=== PATIENT | male | born 1995 | race Caucasian/White ===

== ENCOUNTER 2021-03-29 13:25 | Emergency (ER) | payer BC ==
[2021-03-29] MEDS ORDERED: ONDANSETRON 4 MG/2 ML VIAL IVP STA (14:01)
[2021-03-29] MEDS ORDERED: SODIUM CHLORIDE 0.9% 2,000 ML IV ONE (14:01)
--- NOTE | 2021-03-29 14:18 | ED ---
General Adult HPI - General Chief complaint: Seizure Stated complaint: Seizures,vomiting Time Seen by Provider: 03/29/21 14:00 Source: patient, RN notes reviewed Mode of arrival: wheelchair Limitations: no limitations - History of Present Illness Initial comments: Patient is a 25-year-old male presenting to ED for seizure. Patient girlfriend states that he had 2 separate episodes first occuring around 6am this morning where whole-body shaking with foaming at the mouth. Patient was unable to answer several minutes after the event, patient has no recollection of these events. Patient reports being able to get up and get the couch or another simil ar event occurred. Patient states he has been feeling under the weather with nausea vomiting starting today. Patient reports only being able to keep down water as of this morning. Patient has positive family history of diabetes but reports no seizure history before these events. Patient denies any fever cough congestion, neck pain or stiffness. - Related Data Previous Rx's Medication Instructions Recorded Ondansetron Odt [Zofran Odt] 4 mg PO Q8HR PRN #10 tab 03/29/21 Allergies Allergy/AdvReac Type Severity Reaction Status Date / Time No Known Allergies Allergy Verified 03/29/21 14:20 Review of Systems ROS Statement: Those systems with pertinent positive or pertinent negative responses have been documented in the HPI. ROS Other: All systems not noted in ROS Statement are negative. Past Medical History Past Medical History: No Reported History History of Any Multi-Drug Resistant Organisms: MRSA Date of last positivie culture/infection: 2020 MDRO Source:: arm Past Surgical History: No Surgical Hx Reported Past Psychological History: No Psychological Hx Reported Smoking Status: Never smoker Past Alcohol Use History: Rare Past Drug Use History: Marijuana General Exam Limitations: no limitations Course Vital Signs 03/29/21 13:51 Temperature 98.5 F Pulse Rate 77 Respiratory 16 Rate Blood Pressure 147/78 O2 Sat by Pulse 99 Oximetry Medical Decision Making - Medical Decision Making Patient was updated on results and reevaluated for feeling very comfortable. Patient significant other did describe seizure-like activity. Patient did have some sort of viral illness today. I did advise the patient that is unclear if he had a seizure though when a mildly cannot drive for 6 months. Patient will follow-up with urology return parameters were discussed. - Lab Data Result diagrams: 03/29/21 14:32 03/29/21 14:32 Lab Results 03/29/21 03/29/21 Range/Units 14:32 14:32 WBC 15.9 H (3.8-10.6) k/uL RBC 5.44 (4.30-5.90) m/uL Hgb 16.9 (13.0-17.5) gm/dL Hct 47.5 (39.0-53.0) % MCV 87.3 (80.0-100.0) fL MCH 31.1 (25.0-35.0) pg MCHC 35.6 (31.0-37.0) g/dL RDW 13.1 (11.5-15.5) % Plt Count 256 (150-450) k/uL MPV 7.6 Neutrophils % 87 % Lymphocytes % 6 % Monocytes % 5 % Eosinophils % 1 % Basophils % 0 % Neutrophils # 13.9 H (1.3-7.7) k/uL Lymphocytes # 0.9 L (1.0-4.8) k/uL Monocytes # 0.9 (0-1.0) k/uL Eosinophils # 0.1 (0-0.7) k/uL Basophils # 0.0 (0-0.2) k/uL Sodium 139 (137-145) mmol/L Potassium 4.6 (3.5-5.1) mmol/L Chloride 105 (98-107) mmol/L Carbon Dioxide 27 (22-30) mmol/L Anion Gap 7 mmol/L BUN 17 (9-20) mg/dL Creatinine 0.94 (0.66-1.25) mg/dL Est GFR (CKD-EPI)AfAm >90 (>60 ml/min/1.73 sqM) Est GFR (CKD-EPI)NonAf >90 (>60 ml/min/1.73 sqM) Glucose 110 H (74-99) mg/dL Calcium 9.9 (8.4-10.2) mg/dL Magnesium 2.1 (1.6-2.3) mg/dL Total Bilirubin 0.8 (0.2-1.3) mg/dL AST 26 (17-59) U/L ALT 43 (4-49) U/L Alkaline Phosphatase 82 (38-126) U/L Total Protein 7.6 (6.3-8.2) g/dL Albumin 4.5 (3.5-5.0) g/dL Disposition Clinical Impression: Seizure-like activity, Nausea & vomiting Disposition: HOME SELF-CARE Condition: Stable Instructions (If sedation given, give patient instructions): New-Onset Seizure in Adults (ED) Additional Instructions: Please return to the Emergency Department if symptoms worsen or any other concerns. Prescriptions: Ondansetron Odt [Zofran Odt] 4 mg PO Q8HR PRN #10 tab PRN Reason: Nausea Is patient prescribed a controlled substance at d/c from ED?: No Referrals: None,Stated [Primary Care Provider] - 1-2 days Kane Fam MD [STAFF PHYSICIAN] - 1-2 days Time of Disposition: 15:02
--- NOTE | 2021-03-29 14:41 | CT ---
EXAMINATION TYPE: CT brain wo con DATE OF EXAM: 03/29/2021 COMPARISON: None HISTORY: Seizures CT DLP: 1098.4 mGycm Automated exposure control for dose reduction was used. Ventricles have normal size. There is no mass effect nor midline shift. There is no sign of intracran ial hemorrhage. The calvarium is intact. There is normal aeration of the mastoid sinuses. There is mucus retention cyst left maxillary sinus. IMPRESSION: Negative unenhanced head CT scan.
[2021-03-29 14:51] LABS: Basophils % (A) 0 %; Eosinophils # (A) 0.1 k/uL (0-0.7); Eosinophils % (A) 1 %; HCT 47.5 % (39.0-53.0); HGB 16.9 gm/dL (13.0-17.5); Lymphocytes # (A) 0.9 k/uL (1.0-4.8); Lymphocytes % (A) 6 %; MCH 31.1 pg (25.0-35.0); MCHC 35.6 g/dL (31.0-37.0); MCV 87.3 fL (80.0-100.0); Mean Platelet Volume 7.6; Monocytes # (A) 0.9 k/uL (0-1.0); Monocytes % (A) 5 %; Neutrophils # (A) 13.9 k/uL (1.3-7.7); Neutrophils % (A) 87 %; Platelet Count 256 k/uL (150-450); RBC 5.44 m/uL (4.30-5.90); RDW 13.1 % (11.5-15.5); WBC 15.9 k/uL (3.8-10.6)
[2021-03-29 14:54] LABS: ALT 43 U/L (4-49); AST 26 U/L (17-59); African American GFR (CKD) >90 (>60 ml/min/1.73 sqM); Albumin 4.5 g/dL (3.5-5.0); Alkaline Phosphatase 82 U/L (38-126); Anion Gap 7 mmol/L; Blood Urea Nitrogen 17 mg/dL (9-20); Calcium 9.9 mg/dL (8.4-10.2); Carbon Dioxide 27 mmol/L (22-30); Chloride 105 mmol/L (98-107); Glucose 110 mg/dL (74-99); Magnesium 2.1 mg/dL (1.6-2.3); Non-African American GFR(CKD) >90 (>60 ml/min/1.73 sqM); Potassium 4.6 mmol/L (3.5-5.1); Sodium 139 mmol/L (137-145); Total Bilirubin 0.8 mg/dL (0.2-1.3); Total Protein 7.6 g/dL (6.3-8.2)
[2021-03-29 16:14] VITALS: BP 144/79; PULSE 82; RESP 19; TEMP 98.3
== END 2021-03-29 16:14 | disposition home or self-care (01) ==
LOC: EC 13:25
DX: R56.9 Unspecified convulsions (principal); R11.2 Nausea with vomiting, unspecified; F12.90 Cannabis use, unspecified, uncomplicated
CPT/HCPCS: 36415; 80053; 83735; 85025; 70450; 99285; 96374; 96361; J2405